=== PATIENT | male | born 2000 | race Caucasian/White ===

== ENCOUNTER 2021-01-02 07:49 | Emergency (ER) | payer OTHER ==
[~2021-01-02] VITALS: Ht 170.2 cm; Wt 73.7 kg
[2021-01-02] MEDS ORDERED: CIPR7.5D5 AD (07:58)
[2021-01-02] MEDS ORDERED: IBUP200C25 PO (07:58)
[2021-01-02] MEDS ORDERED: ACETAMINOPHEN 325 MG TAB PO ONE (08:15)
[2021-01-02] MEDS ORDERED: AUGM875T28 PO (09:04)
[2021-01-02] MEDS ORDERED: CIPR7.5D5 OTIC (09:06)
[2021-01-02 09:26] LABS: RSV AMPLIFICATION POSITIVE (NEGATIVE)
[2021-01-02 09:45] VITALS: BP 121/57
== END 2021-01-02 09:54 | disposition home or self-care (01) ==
LOC: M ED 07:49
DX: H66.91 Otitis media, unspecified, right ear (principal); T70.29XA Other effects of high altitude, initial encounter; B34.8 Other viral infections of unspecified site

== ENCOUNTER → 2021-01-18 | Outpatient (CLI) | payer OTHER ==
[~2021-01-18] MED LIST: AUGM875T28 PO; CIPR7.5D5 AD; CIPR7.5D5 OTIC; IBUP200C25 PO
--- NOTE | 2021-01-18 14:55 | REPVR ---
PROCEDURE INFORMATION: Exam: CT Temporal Bones Without Contrast. Exam date and time: 01/18/2021 2:39 PM Age: 20 years old Clinical indication: Other: Otorrhagia TECHNIQUE: Imaging protocol: Computed tomography images of the temporal bones without contrast. Radiation optimization: All CT scans at this facility use at least one of these dose optimization techniques: automated exposure control; mA and/or kV adjustment per patient size (includes targeted exams where dose is matched to clinical indication); or iterative reconstruction. COMPARISON: No relevant prior studies available. FINDINGS: Right inner ear: The inner ear structures are unremarkable. Specifically, the internal auditory canals are symmetric and unremarkable. The naklu falciformis appears normal. The cochlea and vestibular system are clearly visualized and appear unremarkable. There appears to be normal development of the cochlea and the modiolus appears normal as visualized. The vestibule are semicircular canals are of normal size and configuration. There is no evidence of labyrinthitis ossificans or otospongiosis /otosclerosis. The vestibular aqueduct is unremarkable without enlargement or flaring. The cochlear aqueduct is identified. Right ossicles and middle ear: There is incomplete opacification right epitympanum surrounding the head of malleus and body and short process of incus. There is also opacification in mesotympanum partially surrounding ossicular chain. Ossicular chain is intact without erosion. There is opacification oval and round window niches. There is opacification in posterior tympanic cavity involving sinus tympani and facial recess. Right external auditory canal: The external ear structures are well developed. The external ear is clear. The scutum and tympanic membrane are identified and are unremarkable. Right facial nerve canal: The facial nerve is visualized without any abnormality seen. There is bone covering over the tympanic segment as visualized. Right jugular foramen: No jugular dehiscence. Right carotid canal: No aberrant carotid canal. Right mastoid air cells: Right mastoid air cells are adequately developed. There is near complete opacification right mastoid antrum and air cells. No evidence of bony erosion or septal erosion or coalescent mastoiditis. Left inner ear: The inner ear structures are unremarkable. Specifically, the internal auditory canals are symmetric and unremarkable. The nakul falciformis appears normal. The cochlea and vestibular system are clearly visualized and appear unremarkable. There appears to be normal development of the cochlea and the modiolus appears normal as visualized. The vestibule are semicircular canals are of normal size and configuration. There is no evidence of labyrinthitis ossificans or otospongiosis /otosclerosis. The vestibular aqueduct is unremarkable without enlargement or flaring. The cochlear aqueduct is identified. Left ossicles and middle ear: The middle ear structures are unremarkable. Specifically, the middle ear cavity is well developed and aerated and the ossicles are clearly identified. The oval windows and round windows are patent. Left external auditory canal: The external ear structures are well developed. The external ear is clear. The scutum and tympanic membrane are identified and are unremarkable. Left facial nerve canal: The facial nerve is visualized without any abnormality seen. There is bone covering over the tympanic segment as visualized. Left jugular foramen: No jugular dehiscence. Left carotid canal: No aberrant carotid canal. Left mastoid air cells: Mastoid air cells and middle ear cavities are well developed and well aerated. No evidence of bony erosion or septal erosion. Orbital cavity: Left optic nerve head drusen is noted. Paranasal sinuses: There is polypoid mucosal thickening in right maxillary sinus. Soft tissues: Unremarkable. IMPRESSION: 1. Incompletely opacified right mastoid is likely related to mastoid effusion. No coalescent mastoiditis. 2. Incomplete opacification of right middle ear cavity without ossicular erosion or evidence cholesteatoma. 3. Normal left temporal bone. Electronically signed by: Alma French On 01/18/2021 14:55:13 PM
== END ==
LOC: M RAD 14:18
PROVIDERS: ATTEND Otolaryngology
DX: H92.21 Otorrhagia, right ear (principal)